=== PATIENT | female | born 1970 ===

== ENCOUNTER → 2020-08-30 | Day surgery (SDC) | payer OTHER ==
[~2020-08-30] MED LIST: ADULT LOW DOSE81 M1 PO; COZAAR100 MG PO; DERMACINRX5000 UNIT PO; FORTAMET500 MG PO; HYDROCHLOROTHIA25 MG PO; LAMICTAL100 M1 PO; LIPITO PO; PAXIL30 MG PO; SINGULAIR10 MG PO; TRAZ PO; amlodipine PO
== END | disposition home or self-care (01) ==
LOC: ADM 08-24 07:15 → CIR.AMB 07:15
PROVIDERS: ATTEND Obstetrics & Gynecology
DX: N84.1 Polyp of cervix uteri (principal); Z20.822 Contact with and (suspected) exposure to COVID-19